=== PATIENT | female | born 1980 | race African-American/Black ===

== ENCOUNTER 2018-07-08 12:43 | Emergency (ER) | payer SELFPAY ==
[~2018-07-08] VITALS: Ht 154.9 cm; Wt 91.0 kg
[2018-07-08 12:55] VITALS: BP 133/98
== END 2018-07-08 18:40 | disposition left against medical advice (07) ==
LOC: ER 14:00
DX: Z53.21 Procedure and treatment not carried out due to patient leaving prior to being seen by health care provider (principal)